=== PATIENT | male | born 1960 | race Caucasian/White ===

== ENCOUNTER → 2020-01-04 09:04 | Outpatient (BNVA) | payer MEDICARE, SELFPAY | PROVIDERS: Family Provider Nurse Practitioner; PCP Nurse Practitioner; Visit Provider Nurse Practitioner | DX: I10 Essential (primary) hypertension (principal); I73.9 Peripheral vascular disease, unspecified; E78.2 Mixed hyperlipidemia | CPT/HCPCS: 80053; 80061; 81000; 85025 ==

== ENCOUNTER → 2020-07-10 08:42 | Outpatient (BNVA) | payer MEDICARE, SELFPAY | PROVIDERS: Family Provider Nurse Practitioner; PCP Nurse Practitioner; Visit Provider Nurse Practitioner | DX: I10 Essential (primary) hypertension (principal); R73.9 Hyperglycemia, unspecified; I73.9 Peripheral vascular disease, unspecified; E78.2 Mixed hyperlipidemia | CPT/HCPCS: 80053; 83036; 85025 ==

== ENCOUNTER → 2021-06-24 09:53 | Outpatient (BNVA) | payer MEDICARE, SELFPAY | PROVIDERS: Family Provider Nurse Practitioner; PCP Nurse Practitioner; Visit Provider Nurse Practitioner | DX: I73.9 Peripheral vascular disease, unspecified (principal); I10 Essential (primary) hypertension; E78.2 Mixed hyperlipidemia; E55.9 Vitamin D deficiency, unspecified | CPT/HCPCS: 80053; 80061; 82306; 84443 ==

== ENCOUNTER → 2021-11-28 11:16 | Outpatient (BNVA) | payer MEDICARE, SELFPAY | PROVIDERS: Family Provider Nurse Practitioner; PCP Nurse Practitioner; Visit Provider Nurse Practitioner | DX: I10 Essential (primary) hypertension (principal); I73.9 Peripheral vascular disease, unspecified; E78.2 Mixed hyperlipidemia | CPT/HCPCS: 80053; 80061; 85025 ==

== ENCOUNTER → 2022-06-03 10:37 | Outpatient (BNVA) | payer MEDICARE, SELFPAY | PROVIDERS: Family Provider Nurse Practitioner; PCP Nurse Practitioner; Visit Provider Nurse Practitioner | DX: I73.9 Peripheral vascular disease, unspecified (principal); I10 Essential (primary) hypertension; E78.2 Mixed hyperlipidemia; Z23 Encounter for immunization | CPT/HCPCS: 80053; 80061; 84443 ==

== ENCOUNTER → 2022-12-19 09:45 | Outpatient (BNVA) | payer MEDICARE, SELFPAY | PROVIDERS: Family Provider Nurse Practitioner; PCP Nurse Practitioner; Visit Provider Nurse Practitioner | DX: E78.2 Mixed hyperlipidemia (principal); I73.9 Peripheral vascular disease, unspecified; I10 Essential (primary) hypertension | CPT/HCPCS: 80053; 80061; 85025 ==

== ENCOUNTER → 2023-06-11 09:55 | Outpatient (BNVA) | payer MEDICARE, SELFPAY | PROVIDERS: Family Provider Nurse Practitioner; PCP Nurse Practitioner; Visit Provider Nurse Practitioner | DX: E78.2 Mixed hyperlipidemia (principal); I10 Essential (primary) hypertension | CPT/HCPCS: 80053; 80061; 85025 ==

== ENCOUNTER → 2023-11-26 09:37 | Outpatient (BNVA) | payer MEDICARE, SELFPAY | PROVIDERS: Family Provider Nurse Practitioner; PCP Nurse Practitioner; Visit Provider Nurse Practitioner | DX: I10 Essential (primary) hypertension (principal); E78.2 Mixed hyperlipidemia | CPT/HCPCS: 80053; 80061 ==

== ENCOUNTER → 2024-04-28 09:49 | Outpatient (BNVA) | payer MEDICARE, SELFPAY | PROVIDERS: Family Provider Nurse Practitioner; PCP Nurse Practitioner; Visit Provider Nurse Practitioner | DX: I10 Essential (primary) hypertension (principal); E78.2 Mixed hyperlipidemia; E55.9 Vitamin D deficiency, unspecified | CPT/HCPCS: 80053; 80061; 82306; 82607; 84443; 85025 ==

== ENCOUNTER → 2024-10-13 10:54 | Outpatient (BNVA) | payer MEDICARE, SELFPAY | PROVIDERS: Family Provider Nurse Practitioner; PCP Nurse Practitioner; Visit Provider Nurse Practitioner | DX: I10 Essential (primary) hypertension (principal); E78.2 Mixed hyperlipidemia | CPT/HCPCS: 80053; 80061 ==

== ENCOUNTER 2025-01-10 09:59 | Emergency (ER) | payer MEDICARE, SELFPAY ==
[2025-01-10 10:31] VITALS: BP 153/82; PULSE 82; RESP 17; TEMP 36.7; O2SAT 92; BMI 22.4
--- NOTE | 2025-01-10 10:40 | W.ED.WOUNDLC ---
HPI - Wound/Laceration General: Chief Complaint: Wound/Laceration Stated Complaint: L thumb lac Time Seen by Provider: 01/10/25 10:31 Source: patient Mode of arrival: ambulatory Limitations: no limitations History of Present Illness: 64-year-old male who states he was working with a table saw and lacerated his left thumb just prior to arrival. He is shaved off a portion of the skin on the pad of his left thumb bleeding is controlled denies any other injuries unsure when his last tetanus was. Associated symptoms: Denies chills, fever(s), nausea or vomiting Related Data Home Medications ?Medication ?Instructions ?Recorded ?Confirmed aspirin 325 mg tablet,delayed 325 mg PO DAILY 01/04/20 10/13/24 release Previous Rx's ?Medication ?Instructions ?Recorded apixaban 2.5 mg tablet (Eliquis) 2.5 mg PO BID #60 tabs 10/13/24 evolocumab 140 mg/mL subcutaneous 140 mg SUBCUT .every 14 days #2 mL 10/13/24 pen injector ([employer]) lisinopril 30 mg tablet 30 mg PO DAILY #30 tabs 10/13/24 magnesium oxide 400 mg PO BID #60 caps 10/13/24 rosuvastatin 10 mg tablet 10 mg PO DAILY #30 tabs 10/13/24 Allergies Allergy/AdvReac Type Severity Reaction Status Date / Time No Known Allergies Allergy Verified 10/13/24 10:15 Review of Systems Const: Denies: fever(s), chills, body aches or change in appetite ENMT: Denies: throat pain or dental pain Card: Denies: chest pain Resp: Denies: dyspnea GI: Denies: abdominal pain, nausea, vomiting or diarrhea Musc: Denies: neck pain or back pain Skin/Breast: Denies: rash Neuro: Denies: headache(s) PFSH ED PFSH: Medical History Need for immunization against influenza Personal history of smoking Essential (primary) hypertension Mixed hyperlipidemia PAD (peripheral artery disease) Surgical History History of fusion of thoracic spine August, at [facility], [place] T-11 Hx of resection of rib Left lower 2 ribs removed August, at [place], [place] History of arterial bypass of lower extremity Right 2015 Left 2019 Family History Other Diabetes FH: CVA (cerebrovascular accident) Social History Smoking and tobacco/nicotine status: current every day tobacco/nicotine user Second hand smoke exposure: Yes Alcohol intake: current Substance/Drug Use: never Adopted: No Caregiver/support person: No Lives independently: Yes Household members: spouse Housing: House Marital status: Number of children: 3 service: No Current occupational status: retired Do you think of yourself as: Straight/Heterosexual Current gender identity: Male Physical Exam Const: COMMON NORMALS: no acute distress, patient oriented x3 and healthy appearing HENMT: COMMON NORMALS: normocephalic HEAD & SCALP: normocephalic Eye: COMMON NORMALS: conjunctivae normal CONJUNCTIVA: Yes conjunctivae normal Neck/C-Spine: COMMON NORMALS: full ROM and supple Chest: COMMONS NORMALS: normal inspection of the chest Resp: COMMON NORMALS: normal respiratory effort Cardio: COMMON NORMALS: regular rate RATE: regular rate Extremity: COMMON NORMALS: full ROM OTHER: Superficial laceration to the palmar surface of left thumb is roughly 3 cm long by 2 cm wide just shaved a portion of the skin Neuro: COMMON NORMALS: patient oriented x3, moves all extremities and no focal motor deficits Psych: COMMON NORMALS: mental status grossly normal, Normal thought process present and cooperative THOUGHT PROCESS: Normal thought process present Skin: COMMON NORMALS: no rashes or lesions noted GENERAL SKIN EXAM: no rashes or lesions noted Course Vital Signs: Vital signs: Vital Signs Temperature 98.0 F 01/10/25 10:31 Pulse Rate 82 01/10/25 10:31 Respiratory Rate 17 01/10/25 10:31 Blood Pressure 153/82 01/10/25 10:31 Pulse Oximetry 92 01/10/25 10:31 Oxygen Delivery Me thod Room Air 01/10/25 10:31 MDM - Wound/Laceration Medical Decision Making Patient presents here with laceration to the left thumb that is not able to be sutured as it is just the skin shaved off will allow to heal by secondary intention he is to do pressure dressings will give him a tetanus he is follow-up PCP return if worsening. No radiology studies performed this visit Discharge Plan Discharge Patient Disposition: Home Clinical Impression: Laceration of left thumb Condition: Stable Prescriptions: No Action aspirin 325 mg tablet,delayed release (DR/EC) 325 mg PO DAILY Repatha SureClick 140 mg/mL pen injector 140 mg SUBCUT .every 14 days Qty: 2 5RF Eliquis 2.5 mg tablet 2.5 mg PO BID Qty: 60 5RF lisinopril 30 mg tablet 30 mg PO DAILY Qty: 30 5RF magnesium oxide 400 mg magnesium capsule 400 mg PO BID Qty: 60 5RF rosuvastatin 10 mg tablet 10 mg PO DAILY Qty: 30 5RF Discharge Orders: Discharge ED (Routine); Ordered 01/10/25 Ordered By: Jurgen Miner Referrals: Domingo Oneill, TICKER MAINTAINER-C [Primary Care Provider, [facility]] - 4-7 days Discharge Diet: Advance as tolerated Discharge Activity: Resume usual activity Patient Instructions: Laceration Without Closure (ED) Print Language: Swedish Coding Level of Care Code ED Commissions Specialist for Yuval Jensen
[2025-01-10] MEDS: tetanus-dipt-pertussis 0.5 mL SDV IM (11:05)
[2025-01-10] MEDS: HYDROcodone-acetaminophen 5-325 mg Tablet 1 TAB PO (11:06)
== END 2025-01-10 11:09 | disposition home or self-care (01) ==
PROVIDERS: Emergency Provider Emergency Medicine; PCP Nurse Practitioner
DX: S61.012A Laceration without foreign body of left thumb without damage to nail, initial encounter (principal); F17.200 Nicotine dependence, unspecified, uncomplicated; I73.9 Peripheral vascular disease, unspecified; E78.2 Mixed hyperlipidemia; I10 Essential (primary) hypertension; W31.2XXA Contact with powered woodworking and forming machines, initial encounter; Z23 Encounter for immunization
CPT/HCPCS: 90471; 90715; 99283; J9999

== ENCOUNTER → 2025-04-06 08:45 | Outpatient (BNVA) | payer MEDICARE, SELFPAY | PROVIDERS: PCP Nurse Practitioner; Visit Provider Nurse Practitioner | DX: Z12.5 Encounter for screening for malignant neoplasm of prostate (principal); I10 Essential (primary) hypertension; E78.2 Mixed hyperlipidemia | CPT/HCPCS: 80053; 80061; 82607; G0103 ==

== ENCOUNTER 2025-04-13 18:24 | Emergency (ER) | payer MEDICARE, SELFPAY ==
--- OUTSIDE RECORDS SUMMARY | 2025-04-13 18:29 | XMS_ITS | Encounter Summary ---
Author Organization [facility] Address [address] [place] [address] Care Team Providers Care Highway Maintainer Name Role Phone Non-Staff, Physician Primary Care Provider Unava ilable Encounter Details Date Type Department Care Team (Late st Contact Info) Description 10/14/2019 Ancillary Orders [facility] Interventional Radiology OR [address] [place] [address] [place] [address] Israel Hightower MD [address] [place] [phone] PVD (peripheral vascular disease) Social History Tobacco Use Types Packs/Day Years Used Date Smoking Tobacco: Former Cigarettes 1 45 Smokeless Tobacco: Never Comments:Currently smokes 0. 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
--- OUTSIDE RECORDS SUMMARY | 2025-04-13 18:29 | XMS_ITS | Encounter Summary ---
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 No / Unsure 01/16/2021 10:48 AM CDT documented as of this encounter Plan of Treatment Not on file documented as of this encounter Results * US AORTA (01/29/2021 10:34 AM CDT) Anatomical Region Laterality Modality Abdomen Ultrasound 01/29/2021 10:3 4 AM CDT Impressions 01/29/2021 5:32 PM CDT IMPRESSION: Please see below. Exam: US AORTA Date/Time of Exam: 01/29/2021 10:34 AM Reason For Exam: See Diagnosis. 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 Findings: This study is correlated with a noncontrast CT scan of the abdomen and pelvis dated 12/22/2020. As of the previous noncontrast CT scan, a stent or stent graft was present within the left external iliac artery but not the left common femoral artery. Today's examination notes describes a left common iliac artery stents in place but this most likely instead represents the external iliac artery. Color-flow imaging demonstrates patency of the aorta and iliac arteries. Flow velocities throughout all the vessels are in normal range however there is a velocity acceleration between the right common femoral artery and the proximal right superficial femoral artery raising the possibility of a proximal SFA or distal common femoral artery stenosis. There is also acceleration of flow velocity within the proximal right profunda femoris artery. No such exenteration is seen on the left. The aorta and other vessels are of normal diameter. There is no aneurysm. IMPRESSION: Arteriovascular patency is demonstrated. In particular, there is patency of the stented left external iliac artery. Flow velocities raise the possibility of a stenosis of the distal right SFA and/or proximal SFA and profunda femoris arteries. Narrative Procedure Note Michelle Babin MD - 01/29/2021 IMPRESSION: Please see below. Exam: US AORTA Date/Time of Exam: 01/29/2021 10:34 AM Reason For Exam: See Diagnosis. 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 Findings: This study is correlated with a noncontrast CT scan of the abdomen and pelvis dated 12/22/2020. As of the previous noncontrast CT scan, a stent or stent graft was present within the left external iliac artery but not the left common femoral artery. Today's examination notes describes a left common iliac artery stents in place but this most likely instead represents the external iliac artery. Color-flow imaging demonstrates patency of the aorta and iliac arteries. Flow velocities throughout all the vessels are in normal range however there is a velocity acceleration between the right common femoral artery and the proximal right superficial femoral artery raising the possibility of a proximal SFA or distal common femoral artery stenosis. There is also acceleration of flow velocity within the proximal right profunda femoris artery. No such exenteration is seen on the left. The aorta and other vessels are of normal diameter. There is no aneurysm. IMPRESSION: Arteriovascular patency is demonstrated. In particular, there is patency of the stented left external iliac artery. Flow velocities raise the possibility of a stenosis of the distal right SFA and/or proximal SFA and profunda femoris arteries. 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
--- OUTSIDE RECORDS SUMMARY | 2025-04-13 18:29 | XMS_ITS | Encounter Summary ---
Author Organization [facility] Address [address] [place] [address] Care Team Providers Care Director Of Quality Improvement Name Role Phone Non-Staff, Physician Primary Care Provider Unava ilable Reason for Referral * Outpatient Services (Routine) - Closed Specialty Diagnoses / Procedures Referred By Duac t Referred To Contact Radiology Diagnoses Leg pain, right Procedures US DUPLEX ARTERIAL LEG RIGHT Bandar Castellanos DO NO ADDRESS ON FILE [facility] [address] [place] [address] Phone: tel: fax: Referral ID Status Reason Start Date Expiration Date V isits Requested Visits Authorized [id number] Closed ORN View CTS to Schedule (SGF) 07/25/2014 08/25/2015 1 1 ORATOR Encounter Details Date Type Department Care Team (Latest Contact Info) Description 07/25/2014 Ancillary Orders [facility] Centralized Scheduling [address] [facility] [address] [place] [id number] Bandar Castellanos DO NO ADDRESS ON FILE Leg pain, right (Primary Dx) Social History Tobacco Use Types Packs/Day Years Used Date Smoking Tobacco: Never Assessed Sex and Gender Information Value Date Recorded Sex Assigned at Not on file 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 The bifurcation of the common femoral artery shows extensive atherosclerotic changes, without stenosis. At the popliteal artery, there is a 1.8 cm mass , possibly representing a thrombosed aneurysm, although no flow is seen into or out of of the lesion. Distal to this level, flow is markedly restricted and may be collateral flow. IMPRESSION mass or thrombosed aneurysm in the popliteal fossa Procedure Note Addy Vega MD - 07/25/2014 PROCEDURE Right LOWER EXTREMITY ARTERIAL DOPPLER, 25 July 2014 DESCRIPTION Flow velocities measured in the arterial system of the lower extremity proximally show no focal acceleration to suggest hemodynamically significant stenosis. The bifurcation of the common femoral artery shows extensive atherosclerotic changes, without stenosis. At the popliteal artery, there is a 1.8 cm mass , possibly representing a thrombosed aneurysm, although no flow is seen into or out of of the lesion. Distal to this level, flow is markedly restricted and may be collateral flow. IMPRESSION mass or thrombosed aneurysm in the popliteal fossa us Bandar Castellanos DO US ORDERABLES Final Result documented in this encounter Visit Diagnoses Diagnosis Leg pain, right- Primary Pain in limb Leg pain, right Pain in limb documented in this encounter Care Teams Director Of Quality Improvement Relationship Specialty Start Date End Date Non-Staff, Physician NO ADDRESS ON FILE PCP - General 11/19/16 documented as of this encounter
--- OUTSIDE RECORDS SUMMARY | 2025-04-13 18:29 | XMS_ITS | Encounter Summary ---
Author Organization [facility] Address [address] [place] [address] Care Team Providers Care Computer Systems Technician Name Role Phone Non-Staff, Physician Primary Care Provider Unava ilable Encounter Details Date Type Department Care Team (Late st Contact Info) Description 10/05/2019 Ancillary Orders [facility] Interventional Radiology OR [address] [place] [address] 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
--- OUTSIDE RECORDS SUMMARY | 2025-04-13 18:29 | XMS_ITS | Encounter Summary ---
Author Organization [facility] Address [address] [place] [address] Care Team Providers Care Support Analyst Name Role Phone Non-Staff, Physician Primary Care Provider Unava ilable Encounter Details Date Type Department Care Team (Late st Contact Info) Description 07/24/2014 Ancillary Orders [facility] Laboratory Services [place] [address] [place] [address] Social History Tobacco Use Types Packs/Day Years Used Date Smoking Tobacco: Never Assessed Sex and Gender Information Value Date Recorded Sex Assigned at Not on file Legal 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 Gender Identity Not on file Sexual Orientation Not on file documented as of this encounter Plan of Treatment Not on file documented as of this encounter Procedures Procedure Name Priority Date/Time Associated Diagnosis Comments CBC WITH DIFFERENTIAL Routine 07/24/2014 11:04 PM BURNER MACHINE OPERATOR SEDIMENTATION RATE Routine 07/24/2014 11 :04 PM BURNER MACHINE OPERATOR TSH Routine 07/24/2014 11:04 PM BURNER MACHINE OPERATOR COMPREHENSIVE METABOLIC PANEL Routine 07/24/2014 11:04 PM BURNER MACHINE OPERATOR documented in this encounter Results * TSH (07/24/2014 11:04 PM BURNER MACHINE OPERATOR) TSH 3.65 0.30 - 4.80 uIU/mL 07/24/2014 11:42 PM BURNER MACHINE OPERATOR [facility] [place] Blood 07/24/2014 11:0 4 PM BURNER MACHINE OPERATOR 07/24/2014 11:04 PM BURNER MACHINE OPERATOR us Bandar Castellanos DO CHEMISTRY ORDERABLES Final Resu lt Performing Organization Address [facility] Co de Phone Number [facility] [place] CLIA # [id number] [address] [place] [address] * SEDIMENTATION RATE (07/24/2014 11:04 PM BURNER MACHINE OPERATOR) ESR (SEDIMENTATION RATE) 10 0 - 20 mm/Hr 07/24/2014 11:29 PM BURNER MACHINE OPERATOR [facility] [place] Blood 07/24/2014 11:0 4 PM BURNER MACHINE OPERATOR 07/24/2014 11:04 PM BURNER MACHINE OPERATOR us Bandar Castellanos DO HEMATOLOGY ORDERABLES Final Res ult Performing Organization Address [facility] Co de Phone Number [facility] [place] CLIA # [id number] [address] [place] [address] * (ABNORMAL) COMPREHENSIVE METABOLIC PANEL (07/24/2014 11:04 PM BURNER MACHINE OPERATOR) SODIUM 140 136 - 145 mmol/L 07/24/2014 11:42 PM BURNER MACHINE OPERATOR [facility] [place] POTASSIUM 3.8 3.5 - 5.1 mmol/L 07/24/2014 11:42 PM BURNER MACHINE OPERATOR [facility] [place] CHLORIDE 105 98 - 107 mmol/L 07/24/2014 11:42 PM BURNER MACHINE OPERATOR [facility] [place] CO2 28 21 - 32 mmol/L 07/24/2014 11:42 PM BURNER MACHINE OPERATOR [facility] [place] CALCIUM 8.7 8.5 - 10.1 mg/dL 07/24/2014 11:42 PM BURNER MACHINE OPERATOR [facility] [place] BUN 18 7 - 18 mg/dL 07/24/2014 11:42 PM BURNER MACHINE OPERATOR [facility] [place] CREATININE 1.20 0.60 - 1.30 mg/dL 07/24/2014 11:42 PM BURNER MACHINE OPERATOR [facility] [place] GLUCOSE 98 74 - 106 mg/dL 07/24/2014 11:42 PM BURNER MACHINE OPERATOR [facility] [place] TOTAL PROTEIN 7.4 6.4 - 8.2 g/dL 07/24/2014 11:42 PM [facility] [employer] [facility] [place] ALBUMIN 3.7 3.4 - 5.0 g/dL 07/24/2014 11:42 PM [facility] BILIRUBIN TOTAL 0.6 0.2 - 1.0 mg/dL 07/24/2014 11:42 PM [facility] ALKALINE PHOSPHATASE 71 46 - 116 U/L 07/24/2014 11:42 PM [facility] AST 9(L) 15 - 37 U/L 07/24/2014 11:42 PM [facility] ALT 20(L) 30 - 65 U/L 07/24/2014 11:42 PM [facility] GFR >60 >=60 mL/min/1.7 3 sq meter 07/24/2014 11:42 PM [facility] [employer] [facility] Comment: eGFR has not been validated for use in the elderly (> 70 years of age), women, patients with serious co-morbid conditions, or persons with extremes of body size or muscle mass and should also be interpreted with caution in patients with acute kidney failure, dialysis dependent patients, patients reporting exceptional dietary intake (e.g. vegetarian diet, high protein diets, creatine supplementation), and patients with severe liver disease. Based on National Kidney Disease Education Program If patient is , please refer to the GFR result. GFR, >60 >=60 mL/min/1.7 3 sq meter 07/24/2014 11:42 PM [facility] [employer] [facility] ANION GAP 7(L) 12 - 20 mmol/L 07/24/2014 11:42 PM [facility] Blood 07/24/2014 11:0 4 PM BURNER MACHINE OPERATOR 07/24/2014 11:04 PM BURNER MACHINE OPERATOR [facility] [facility] [place] - 07/24/2014 11:42 PM BURNER MACHINE OPERATOR Effective 04/20/2014, the Alkaline Phosphatase test method and reference range have changed. Please take this into consideration when interpreting results prior to or after this date. us Bandar Castellanos DO CHEMISTRY ORDERABLES Final Resu lt [facility] [place] BILLY # [id number] [address] [place] [address], [place] [address] * (ABNORMAL) CBC WITH DIFFERENTIAL (07/24/2014 11:04 PM BURNER MACHINE OPERATOR) WBC 10.8(H) 4.2 - 9.1 K/uL 07/24/2014 11:18 PM BURNER MACHINE OPERATOR [facility] [place] RBC 4.81 4.63 - 6.08 M/uL 07/24/2014 11:18 PM [facility] [place] HEMOGLOBIN 15.7 13.7 - 17.5 g/dL 07/24/2014 11:18 PM BURNER MACHINE OPERATOR [facility] [place] HEMATOCRIT 45.7 40.1 - 51.0 % 07/24/2014 11:18 PM [facility] [place] MCV 95.0(H) 79.0 - 92.2 fL 07/24/2014 11:18 PM [facility] [place] MCH 32.6(H) 25.7 - 32.2 pg 07/24/2014 11:18 PM BURNER MACHINE OPERATOR [facility] [place] MCHC 34.4 32.3 - 36.5 g/dL 07/24/2014 11:18 PM [facility] [place] RDW 14.1 11.0 - 14.5 % 07/24/2014 11:18 PM [facility] [place] RDW-STDEV 47.2 36.9 - 56.9 fL 07/24/2014 11:18 PM [facility] [place] PLATELETS 257 130 - 400 K/uL 07/24/2014 11:18 PM [facility] [place] MPV 10.4 10.0 - 14.8 fL 07/24/2014 11:18 PM BURNER MACHINE OPERATOR [facility] [place] NEUTROPHILS 57 34 - 68 % 07/24/2014 11:18 PM BURNER MACHINE OPERATOR [facility] [place] LYMPHOCYTES 29 22 - 53 % 07/24/2014 11:18 PM BURNER MACHINE OPERATOR [facility] [place] MONOCYTES 11 5 - 12 % 07/24/2014 11:18 PM BURNER MACHINE OPERATOR [facility] [place] EOSINOPHILS 3 1 - 7 % 07/24/2014 11:18 PM BURNER MACHINE OPERATOR [facility] [place] BASOPHILS 1 0 - 1 % 07/24/2014 11:18 PM BURNER MACHINE OPERATOR [facility] [place] NEUTROPHIL ABSOLUTE 6.12(H) 1.78 - 5.38 K/uL 07/24/2014 11:18 PM BURNER MACHINE OPERATOR [facility] [place] LYMPHOCYTE ABSOLUTE 3.09 1.20 - 3.40 K/uL 07/24/2014 11:18 PM BURNER MACHINE OPERATOR [facility] [place] MONOCYTE ABSOLUTE 1.23(H) 0.30 - 0.82 K/uL 07/24/2014 11:18 PM BURNER MACHINE OPERATOR [facility] [place] EOSINOPHIL ABSOLUTE 0.28 0.04 - 0.54 K/uL 07/24/2014 11:18 PM BURNER MACHINE OPERATOR [facility] [place] BASOPHILS ABSOLUTE 0.07 0.01 - 0.08 K/uL 07/24/2014 11:18 PM BURNER MACHINE OPERATOR [facility] [place] IMMATURE GRANULOCYTES 0 % 07/24/2014 11:18 PM BURNER MACHINE OPERATOR [facility] [place] IMMATURE GRANULOCYTES ABSOLUTE 0.02 K/uL 07/24/2014 11:18 PM BURNER MACHINE OPERATOR [facility] [place] Blood 07/24/2014 11:0 4 PM BURNER MACHINE OPERATOR 07/24/2014 11:04 PM BURNER MACHINE OPERATOR us Bandar Castellanos DO HEMATOLOGY ORDERABLES Final Res ult [facility] [place] CLIA # [id number] [address] [place] [address] [address] [place] [address] documented in this encounter Visit Diagnoses Not on filedocumented in this encounter Care Teams Support Analyst Relationship Specialty Start Date End Date Non-Staff, Physician NO ADDRESS ON FILE PCP - General 11/19/16 documented as of this encounter
--- OUTSIDE RECORDS SUMMARY | 2025-04-13 18:29 | XMS_ITS | Clinical Summary ---
Author Organization [facility] Address [address] [place] [address] Phone Care Team Providers Care Control Officer Manager Name Role Phone Non-Staff, Physician Primary Care Provider Unava ilable Allergies No known active allergies Medications aspirin buffered (BUFFERIN) 325 mg tablet Take 1 Tablet by mouth daily. 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 9 Active apixaban (Eliquis) 2.5 mg tablet TAKE ONE TABLET BY MOUTH TWICE DAILY 5 9 Active ibuprofen (MOTRIN) 400 mg tablet Take 400 mg by mouth every 6 hours as needed for Pain, Mild. 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 Acute blood loss anemia Ileus Acute upper GI bleeding Resolved Problems Problem Noted Date Diagnosed Date Resolved Date Suicide attempt 03/19/2018 06/14/2019 Burn of forehead 03/19/2018 06/14/2019 Tobacco abuse 08/16/2014 09/27/2019 Cellulitis 08/16/2014 06/14/2019 Postoperative hemorrhagic shock 12/25/2020 Acute renal failure 12/26/19 21 Immunizations Immunization Administration Dates Next Due (ADACEL/BOOSTRIX)(10 YR UP) TDAP VACCINE, 0.5ML, IM 03/19/2018 (PNEUMOVAX 23)(50 YRS UP) PN EUMOCOCCAL POLYSACCHARIDE (PPV23) 0.5 ML, IM 04/04/2019 Social History Tobacco Use Types Packs/Day Years Used Date Smoking Tobacco: Every Day Cigarettes Smokeless Tobacco: Never Comments:Quit smoking: Lori horowitz smokes 0.5 ppd 10.13.20 - 11.12.19 QUIT 08/17/2019 Alcohol Use Standard Drinks/Week Comments No 0 (1 standard drink = 0.6 oz pur e alcohol) Sex and Gender Information Value Date Recorded Sex Assigned at Not on file 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 Gender Identity Not on file Sexual Orientation Not on file Last Filed Vital Signs Vital Sign Reading Time Taken Comments Blood Pressure 116/72 01/29/2021 10:36 AM CDT Pulse 81 01/29/2021 10:36 AM CDT Temperature 37.1 C (98.7 F) 12/25/2020 7:30 AM CDT Respiratory Rate 20 12/25/2020 9:30 AM CDT Oxygen Saturation - - Inhaled Oxygen Concentration - - Weight 66.2 kg (146 lb) 01/29/2021 10:36 AM CDT Height 167.6 cm (5' 6 ) 01/29/2021 10:36 AM CDT Body Mass Index 23.56 01/29/2021 10:36 AM CDT Plan of Treatment Health Maintenance Due Date Last Done Comments COLORECTAL SCREENING 12/29/2004 Colorectal Cancer Screening 12/29/2004 FIT-DNA Q 3 years 12/29/2004 FIT/FOBT Q 1 year 12/29/2004 Flex Sig/CT Colonography Q 5 years 12/29/2004 ZOSTER VACCINE (1 of 2) 12/29/2009 PNEUMOCOCCAL VACCINE 50+ YEARS (2 of 2 - PCV) 04/04/20 20 04/04/2019 INFLUENZA VACCINE (#1) 2025 DTAP/TDAP/TD VACCINES (2 - Td or Tdap) 03/19/2028 RSV VACCINE (60+ or ) (1 - 1-dose 75+ series) 12/29/2034 Medical Devices Implanted Type Area Sales Support Representative Device Identifier Shelf Expiration Date Model / Serial / Lot Clip Ligating Horizon Med Ti 759141 - Csc - [id number] Implanted: by Israel Hightower MD (Quantity not on file) Clip Left: Leg TELEFLEX- WECK CLOSURE SYS [id number] 02/23/2024 [id number] / / [id number] Closure Perclose Proglide 00810 - [id number] Implanted:Qty : 1 on 12/22/2020 by Israel Hightower MD Closure Device SADLER- VASC DEVICE [id number] 11/02/2020 23332 / / [id number] Dev Sealangio Vip 8fr 298706t - [id number] Implanted:Qty : 1 on 12/22/2020 by Israel Hightower MD Closure Device Right: Groin SADLER [employer] 03/16/2021 [id number] / / [id number] Dev Sealangio Vip 8fr 302322b - [id number] Implanted:Qty : 1 on 12/22/2020 by Israel Hightower MD Closure Device Right: Groin SADLER [employer] 08/16/2021 [id number] / / [id number] Cuauhtemoc Dey [id number] 376913k - [id number] Implanted:Qty : 1 on 08/02/2014 by Ally Molina MD Graft Right: Arterial [employer] TAMIKA 01/31/2017 [id number] / / [id number] Vein Saphenous 79cm V010 - Ssn: [id number]..... .Dnr: [id number] Implanted:Qty : 1 on 10/06/2014 by Ally Molina MD Graft Right: Leg [employer] INC 01/31/2024 V010 / SN: [id number]...... DNR: [id number] / NA Description:Implant of Cryov ein saphenous vein human allograft to right leg used for right femoral artery to right posterior tibial artery bypass. Starclose Se Vasc Closure 55812-33 - [id number] Implanted:Qty : 1 on 08/17/2014 by Ally Molina MD Hemostatic Right: Groin SADLER- VASC DEVICE 12/16/2015 10333 / / [id number] Hemostatic Surgifoam Sz100 1974 - Sna Implanted:Qty : 1 on 12/15/2018 by Israel Hightower MD Hemostatic Left: Groin J&J- [employer] 11/03/20221973 / NA / [id number] Hemostatic Surgicel 1x2in 1960 [id number] Implanted: by Israel Hightower MD (Quantity not on file) Hemostatic Left: Leg J&J- [employer] INC [id number] 11/14/20211960 / / [id number] Sealant Floseal Matrix 5ml 0692960 - Old - [id number] Implanted: by Israel Hightower MD (Quantity not on file) Sealant Left: Leg [employer]- [employer] [id number] 08/12/2020 0512344 -OLD / / [id number] Sealant Floseal Matrix 5ml 2426428 - Old - [id number] Implanted: by Israel Hightower MD (Quantity not on file) Sealant Left: Leg OCAMPO- BIOS[employer]ENCE [id number] 08/12/2020 4206379 -OLD / / [id number] 7A Stent Bili Absolute Pro 5x40 1089200-09 - [id number] Implanted:Qty : 1 on 08/17/2014 by Ally Molina MD Stent Right: Groin SADLER- VASC DEVICE 06/17/2016 [id number] -04 / / [id number] Stent Viabahn 5x15.0/.018-. 014 [id number] - [id number] Implanted:Qty : 1 on 08/17/2014 by Ally Molina MD Stent Right: Groin [employer] 03/17/2016 [id number] 02 / / [id number] Stent Viabahn 5x5.0/.018-.0 14 [id number] - [id number] Implanted:Qty : 1 on 08/17/2014 by Ally Molina MD Stent Right: Groin [employer] 04/17/2016 [id number] 02 / / [id number] Stent Xprs Sd [id number] - S. Implanted:Qty : 1 on 08/17/2014 Stent Right: Groin [employer]LY [employer] 06/17/2016 89247-4 1989 / . / [id number] Description:laboratory specialist charge Stent Viabahn Hep 8xxr37ce [id number] - [id number] Implanted:Qty : 1 on 12/15/2018 by Israel Hightower MD Stent Left: Popliteal Artery [employer] 03/11/2021 [id number] 002A / [id number] / NA Stent Vasc Supera 6fr Q-67-850-120- P6-01/04/2019 Implanted: by Israel Hightower MD (Quantity not on file) Stent SADLER- VASC DEVICE [id number] 08/16/2020 S-60-10 0-120-P / / [id number] Stent-01/05/20 Implanted:Qty : 1 on 01/04/2019 by Israel Hightower MD Stent [id number] 08/16/2020 / / [id number] Stent Lifestent 7 X 100-01/21/2019 Implanted:02/2019 (Quantity not on file) Stent [id number] 06/11/2020 / / [id number] Stent R2p 6fr 7.0x40mm 200cm Misago Slf Expand Cvu88350s-40/ 7/2019 Implanted:02/2019 by Israel Hightower MD (Quantity not on file) Stent Leg [employer] TAMIKA [id number] 06/16/2021 [id number] [id number] / / [id number] Description:L SFA Stent Lifestream [id number] - [id number] Implanted:Qty : 1 on 12/21/2020 Stent Left: Leg CR BARD- KIMBERLY VASC INC 04/16/2022 [id number] 0737 / / [id number] Stent Lifestream Cvr 0s51s65 [id number] - [id number] Implanted:Qty : 1 on 12/21/2020 Stent N/A: Arterial CR BARD- KIMBER[employer] VASC INC 08/16/2023 [id number] 0758 / / [id number] Stent Lifestream Cvr 5x25z68 [id number] - [id number] Implanted:Qty : 1 on 12/22/2020 by Israel Hightower MD Stent Left: Leg CR BARD- KIMBER[employer] VASC INC 08/16/2023 [id number] 0737 / / [id number] Stent Vasc Enroute 7x30mm Sr-0730-Cs - [id number] Implanted:Qty : 1 on 12/22/2020 by Israel Hightower MD Stent Left: Iliac Artery SILKROAD 07/16/2023 SR-0730 -CS / / [id number] Stent Viabahn Vbx [id number] - [id number] Implanted:Qty : 1 on 12/22/2020 by Israel Hightower MD Stent Left: Iliac Artery [employer] [id number] 902A / / Graft Vasc Propaten 9tmo76bs Qp457668p - [id number] Implanted:Qty : 1 on 10/14/2019 by Israel Hightower MD Tissue Left: Leg [employer] [id number] 07/26/2023 [id number] 0A / [id number] / Insurance * Guarantor: TERE HERRON Account Type Relation to Patient Date of Phone Billing Address Personal/Family [id number] [place] [address] RX [facility] Medicare Part D RX [employer] Medicaid Care Teams Control Officer Manager Relationship Specialty Start Date End Date Non-Staff, Physician NO ADDRESS ON FILE PCP - General 11/19/16
--- OUTSIDE RECORDS SUMMARY | 2025-04-13 18:29 | XMS_ITS | Encounter Summary ---
Author Organization [facility] Address [address] [place] [address] Care Team Providers Care Experimental Mechanic Spacecraft Name Role Phone Non-Staff, Physician Primary Care Provider Unava ilable Reason for Referral * Radiology Services (Routine) - Closed Specialty Diagnoses / Procedures Referred By Contac t Referred To Contact Diagnoses PVD (peripheral vascular disease) Procedures XR FLUORO LESS THAN 1 HOUR Israel Hightower MD Phone: tel: fax: Referral ID Status Reason Start Date Expiration Date Visits Re quested Visits Authorized [id number] Closed 12/15/2018 01/15/2020 1 1 Encounter Details Date Type Department Care Team (Late st Contact Info) Description 12/15/2018 Ancillary Orders 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 Exam was auto-finalized as part of the [email or web address] Single Instance conversion project. Procedure Note Mendoza Aviles - 01/28/2021 Order information only. Exam was auto-finalized as part of the [email or web address] Single Instance conversion project. Israel Hightower MD DIAGNOSTIC IMAGING FLEX [place] Final Result documented in this encounter Visit Diagnoses Diagnosis PVD (peripheral vascular disease) Peripheral vascular disease, unspecified documented in this encounter Care Teams Experimental Mechanic Spacecraft Relationship Specialty Start Date End Date Non-Staff, Physician NO ADDRESS ON FILE PCP - General 11/19/16 documented as of this encounter
--- OUTSIDE RECORDS SUMMARY | 2025-04-13 18:29 | XMS_ITS | Clinical Summary ---
Author Organization [facility] Address [address] [place] [address] Phone Care Team Providers Care Contact Lens Manufacturer Name Role Phone Non-Staff, Physician Primary Care Provider Unava ilable Allergies No known active allergies Medications ibuprofen (MOTRIN) 400 mg tablet Take 400 mg by mouth every 6 hours as needed for Pain, Mild. 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 Active acetaminophen (TYLENOL) 325 mg tablet Take 2 Tablets (650 mg) by mouth every 6 hours as needed for Other (See Comment) (See admin instruction s). 9 Active ELIQUIS 2.5 mg tablet TAKE ONE TABLET BY MOUTH TWICE DAILY 5 9 Active pantoprazole (PROTONIX) 40 mg Tablet, Delayed Release (E.C.) Take 1 Tablet (40 mg) by mouth daily before breakfast. 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 Gender Identity Not on file Sexual Orientation Not on file Occupation Industry Job Start Date Job End Date Not on file Not on file Not on file Not on file Last Filed Vital Signs Vital Sign Reading Time Taken Comments Blood Pressure 116/72 01/29/2021 10:36 AM CDT Pulse 81 01/29/2021 10:36 AM CDT Temperature 37.1 C (98.7 F) 12/25/2020 7:30 AM CDT Respiratory Rate 20 12/25/2020 9:30 AM CDT Oxygen Saturation 96% 01/29/2021 10:36 AM CDT Inhaled Oxygen Concentration - - Weight 66.2 kg (146 lb) 01/29/2021 10:36 AM CDT Height 167.6 cm (5' 6 ) 01/29/2021 10:36 AM CDT Body Mass Index 23.57 01/29/2021 10:36 AM CDT Plan of Treatment [...] series) 12/29/2034 Medical Devices Implanted Type 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 Device Identifier Shelf Expiration Date Model / Serial / Lot Clip Ligating Horizon Med Ti [id number] - Csc - [id number] Implanted: by Israel Hightower MD at [facility] (Quantity not on file) Clip Left: Leg TELEFLEX- WECK CLOSURE SYS [id number] 02/23/2024 [id number] / / [id number] Dev Sealangio Vip 8fr [id number] - [id number] Implanted:Qty : 1 on 12/22/2020 by Israel Hightower MD at [facility] Closure Device Right: Groin [facility] 08/16/2021 [id number] / / [id number] Closure Perclose Proglide 87993 - [id number] Implanted:Qty : 1 on 12/22/2020 by Israel Hightower MD at [facility] Closure Device SADLER- VASC DEVICE [id number] 11/02/2020 90866 / / [id number] Sealangio Vip 8fr [id number] - [id number] Implanted:Qty : 1 on 12/22/2020 by Israel Hightower MD at [facility] Closure Device Right: Groin [facility] 03/16/2021 113802 / / [id number] Grft Fusn Bioline [id number] - [id number] Implanted:Qty : 1 on 08/02/2014 by Ally Molina MD at [facility] Graft Right: Arterial [employer] TAMIKA 01/31/2017 337322S / / [id number] Vein Saphenous 79cm V010 - Ssn: [id number]..... .Dnr: [id number] Implanted:Qty : 1 on 10/06/2014 by Ally Molina MD at [facility] Graft Right: Leg [employer] 01/31/2024 V010 / SN: [id number]...... DNR: [id number] / NA Description:Implant of Cryov ein saphenous vein human allograft to right leg used for right femoral artery to right posterior tibial artery bypass. Starclose Se Vasc Closure 68570-94 - [id number] Implanted:Qty : 1 on 08/17/2014 by Ally Molina MD at [facility] Hemostatic Right: Groin SADLER- VASC DEVICE 12/16/2015 15090 / / [id number] Hemostatic Surgifoam Sz100 1974 - Sna Implanted:Qty : 1 on 12/15/2018 by Israel Hightower MD at [facility] Hemostatic Left: Groin J&J- [employer] INC 11/03/2022 1974 / NA / [id number] Hemostatic Surgicel 1x2in 1960 - [id number] Implanted: by Israel Hightower MD at [facility] (Quantity not on file) Hemostatic Left: Leg J&J- [employer] INC [id number] 11/14/20211960 / / [id number] Sealant Floseal Matrix 5ml 8053869 - Old - [id number] Implanted: by Israel Hightower MD at [facility] (Quantity not on file) Sealant Left: Leg TriQ Systems [id number] 08/12/2020 8248710 -OLD / / [id number] Sealant Floseal Matrix 5ml [id number] - - [id number] Implanted: by Israel Hightower MD at [facility] (Quantity not on file) Sealant Left: Leg [employer]Q Systems [id number] 08/12/2020 8323499 -OLD / / [id number] Stent Xprs Sd [id number] - S. Implanted:Qty : 1 on 08/17/2014 at [facility] Stent Right: Groin [employer]- [employer]IMBERLY [employer] 06/17/2016 37702-5 1989 / . 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 014 [id number] - [id number] Implanted:Qty : 1 on 08/17/2014 by Ally Molina MD at [facility] Stent Right: Groin [employer] 03/17/2016 [id number] / / [id number] Stent Viabahn Hep 3wrm49qy [id number] - [id number] Implanted:Qty : 1 on 12/15/2018 by Israel Hightower MD at [facility] Stent Left: Popliteal Artery [employer] 03/11/2021 [id number] 002A / [id number] / NA Stent Vasc Supera 6fr T-[id number]- P6-01/04/2019 Implanted: by Israel Hightower MD (Quantity not on file) Stent SADLER- VASC DEVICE [id number] 08/16/2020 S-60-10 0-120-P 6 / / [id number] Stent-01/05/20 Implanted:Qty : 1 on 01/04/2019 by Israel Hightower MD Stent [id number] 08/16/2020 / / [id number] Stent Lifestent 7 X 100-01/21/2019 Implanted:02/2019 (Quantity not on file) Stent [id number] 06/11/2020 / / [id number] Stent R2p 6fr 7.0x40mm 200cm Misago Slf Expand [id number]-31/ 7/2019 Implanted:02/2019 by Israel Hightower MD (Quantity not on file) Stent Leg TERNexBio- Vidit TAMIKA [id number] 06/16/2021 [id number] 0R / / [id number] Description:L SFA Stent Lifestream Cvr 4k70w58 [id number] - [id number] Implanted:Qty : 1 on 12/21/2020 at [facility] Stent N/A: Arterial CR BARD- KIMBERLY VASC INC 08/16/2023 [id number] 0758 / / [id number] Stent Lifestream [id number] - [id number] Implanted:Qty : 1 on 12/21/2020 at [facility] Stent Left: Leg CR BARD- KIMBERLY VASC INC 04/16/2022 [id number] 0737 / / [id number] Stent Lifestream Cvr 8h53s84 [id number] - [id number] Implanted:Qty : 1 on 12/22/2020 by Israel Hightower MD at [facility] Stent Left: Leg CR BARD- KIMBERLY VASC INC 08/16/2023 [id number] 0737 / / [id number] Stent Viabahn Vbx [id number] [id number] - [id number] Implanted:Qty : 1 on 12/22/2020 by Israel Hightower MD at [facility] Stent Left: Iliac Artery [employer] [id number] 902A / / Stent Vasc Enroute 7x30mm Sr-0730-Cs - [id number] Implanted:Qty : 1 on 12/22/2020 by Israel Hightower MD at [facility] Stent Left: Iliac Artery SILKROAD 07/16/2023 SR-0730 -CS / / [id number] Graft Vasc Propaten [id number] - [id number] Implanted:Qty : 1 on 10/14/2019 by Israel Hightower MD at [facility] Tissue Left: Leg [employer] [id number] 07/26/2023 [id number] 0A / [id number] / Insurance [place]ICAID [place] MEDICARE PART A AND B RX INFOCROSSING Medicaid RX [facility] Medicare Part D MEDICARE PART A AND B [place] Advance Directives For more information, please contact: [phone] * Full Code (Latest Code Status on File) Date Activated Date Inactivated Comments 12/21/2020 2:06 PM 12/25/2020 1:11 PM * Full Code Date Activated Date Inactivated Comments 10/14/2019 11:07 AM 10/17/2019 2:08 PM * Full Code Date Activated Date Inactivated Comments 10/14/2019 8:34 AM 10/14/2019 11:07 AM * Full Code Date Activated Date Inactivated Comments 04/02/2019 2:28 PM 04/04/2019 8:12 PM * Full Code Date Activated Date Inactivated Comments 04/01/2019 11:23 PM 04/02/2019 2:28 PM Care Teams Contact Lens Manufacturer Relationship Specialty Start Date End Date Non-Staff, Physician NO ADDRESS ON FILE PCP - General 11/19/16
[2025-04-13 19:03] VITALS: BP 150/79; PULSE 94; RESP 17; TEMP 36.8; O2SAT 96; BMI 23.2
[2025-04-13] MEDS: HYDROcodone-acetaminophen 7.5-325 mg Tablet 1 TAB PO (20:25)
--- NOTE | 2025-04-13 20:44 | ED_ITS ---
HPI - Extremity Problem General: Chief complaint: Extremity Injury, Lower Stated complaint: HIP pain Time Seen by Provider: 04/13/25 19:16 Source: patient Mode of arrival: ambulatory Limitations: no limitations History of Present Illness: Patient is a 64-year-old male who reports the emergency department clinic of right hip pain for 3 weeks. Denies any injury, states that he thinks he is having flareup of nerve pain. He has been able to walk without incident, no bowel or bladder incontinence, no saddle anesthesia, no other concerning symptoms. He does have a history of previous back surgery however. No fever, night sweats, weight loss, history of cancer, chronic steroid use, or any other concerning symptoms or related with his back pain. He does note that primarily is to the right buttock region into the right hip and radiates down the right leg below the knee. His vitals are stable. He has only been taking Tylenol at home. MD Complaint: other (Lower back pain, right hip pain, right lower extremity pain) Onset (ago): week(s) (3) Pain Consistency: constant Location: right and lower extremity Radiation: distal Associated symptoms: Deny chest pain, fever(s) or rash Related Data Home Medications ?Medication ?Instructions ?Recorded ?Confirmed aspirin 325 mg tablet,delayed 325 mg PO DAILY 01/04/20 04/06/25 release Previous Rx's ?Medication ?Instructions ?Recorded mupirocin 2 % topical ointment 1 applic topical BID ID N open 01/12/25 wound #22 grams apixaban 2.5 mg tablet (Eliquis) 2.5 mg PO BID #60 tab s 04/06/25 lisinopril 30 mg tablet 30 mg PO DAILY #30 tabs 03/18 09/10 magnesium oxide 400 mg PO BID #60 caps 04/06 rosuvastatin 10 mg tablet 10 mg PO DAILY #30 tabs 03/18 09/10 tizanidine 4 mg capsule 4 mg PO BID PRN muscle spast icity 04/13/25 #8 caps Allergies Allergy/AdvReac Type Severity Reaction Status Date / Time No Known Allergies Allergy Verified 04/06/25 08:19 Review of Systems General: Reports: 10 or more systems reviewed and unremarkable except in HPI and below Const: Reports: other (denies trauma); Denies: fever(s), change in weight or night sweats Card: Denies: chest pain, lightheadedness or syncope Resp: Denies: dyspnea GI: Denies: abdominal pain or fecal incontinence : Denies: urinary incontinence Musc: Reports: back pain, extremity pain (Right lower extremity) and joint pain (Right hip); Denies: neck pain Skin/Breast: Denies: rash or skin pain Neuro: Denies: headache(s), numbness in extremities, weakness in extremities, sensory changes, lack of coordination, difficulty walking, frequent falls or involuntary movements PFSH ED PFSH: Medical History Need for immunization against influenza Personal history of smoking Essential (primary) hypertension Mixed hyperlipidemia PAD (peripheral artery disease) Surgical History History of fusion of thoracic spine August, at [place], [place] T-11 Hx of resection of rib Left lower 2 ribs removed August, at [place], [place] History of arterial bypass of lower extremity Right 2015 Left 2019 Family History Other Diabetes FH: CVA (cerebrovascular accident) Social History Smoking and tobacco/nicotine status: current every day tobacco/nicotine user Second hand smoke exposure: Yes Alcohol intake: current Substance/Drug Use: never Adopted: No Caregiver/support person: No Lives independently: Yes Household members: spouse Housing: House Marital status: Number of children: 3 service: No Current occupational status: retired Do you think of yourself as: Straight/Heterosexual Current gender identity: Male Physical Exam Const: COMMON NORMALS: no acute distress, patient oriented x3, no limitations, healthy appearing and alert Resp: COMMON NORMALS: normal respiratory effort, No retractions, No use of accessory muscles and clear to auscultation bilaterally AUSCULTATION: clear to auscultation bilaterally Cardio: COMMON NORMALS: regular rate, regular rhythm, S1 normal heart sound present and S2 normal heart sound present RATE: regular rate RHYTHM: regular rhythm HEART SOUNDS: S1 normal heart sound present and S2 normal heart sound present Back/Pelvis: OTHER: Normal visual examination. No spinous process tenderness or paracervical, parathoracic, or paralumbar tenderness to palpation. Full active range of motion. Extremity: COMMON NORMALS: normal to inspection and full ROM Neuro: COMMON NORMALS: patient oriented x3, moves all extremities, no focal motor deficits, no sensory deficits noted, deep tendon reflexes 2+ bilaterally and gait normal SENSORIUM/ORIENTATION: Yes alert OTHER: L3, L4, L5, and S1 nerve sensations intact. Normal knee jerk and ankle jerk reflexes. Skin: COMMON NORMALS: no rashes or lesions noted GENERAL SKIN EXAM: no rashes or lesions noted Course Vital Signs: Vital signs: Vital Signs Temperature 98.3 F 04/13/25 19:03 Pulse Rate 94 04/13/25 19:03 Respiratory Rate 17 04/13/25 19:03 Blood Pressure 150/79 04/13/25 19:03 Pulse Oximetry 96 04/13/25 19:03 Oxygen Delivery Me thod Room Air 04/13/25 19:03 MDM - Extremity (Nontraumatic) Medical Decision Making Patient presenting for 3 weeks of right low back and hip pain radiating down the right leg, no trauma reported. No red flag symptoms with his history or exam. He is on a blood thinner, so avoided NSAID and due to his age treated with tizanidine, also was given a shot of Decadron and [place] and upon recheck approximately an hour or so later states that his pain and felt quite a bit better. With his exam being unremarkable overall, no concerning historical elements, I feel that this is benign and likely lumbar radiculopathy and encouraged him to treat conservatively at home. A few tizanidine will be sent home as well and return precautions given. No radiology studies performed this visit Discharge Plan Discharge Patient Disposition: Home Clinical Impression: Lumbar radiculopathy, acute Condition: Stable Prescriptions: New tizanidine 4 mg capsule 4 mg PO BID PRN (Reason: muscle spasticity) Qty: 8 0RF No Action aspirin 325 mg tablet,delayed release (DR/EC) 325 mg PO DAILY mupirocin 2 % ointment 1 applic topical BID PRN (Reason: open wound) Qty: 22 0RF Eliquis 2.5 mg tablet 2.5 mg PO BID Qty: 60 5RF lisinopril 30 mg tablet 30 mg PO DAILY Qty: 30 5RF magnesium oxide 400 mg magnesium capsule 400 mg PO BID Qty: 60 5RF rosuvastatin 10 mg tablet 10 mg PO DAILY Qty: 30 5RF Discharge Orders: Discharge ED (Routine); Ordered 04/13/25 Ordered By: Tho Donaldson Referrals: Domingo Oneill FNP-C [Primary Care Provider, Family Practice] Patient Instructions: Patient Portal & Brooke Instructions Activity Restrictions/Additional Instructions: Discharge Instructions: Lumbar Radiculopathy Diagnosis: Lumbar radiculopathy, with significant improvement following inpatient administration of [place] (hydrocodone/acetaminophen) and tizanidine. Discharge Medication Instructions: - Tizanidine 4 mg: Prescribe only a limited number of doses, to be taken at bedtime for short-term muscle spasm relief. Tizanidine is a centrally acting alpha-2 agonist muscle relaxant. In older adults, use the lowest effective dose for the shortest duration to minimize risks of sedation, hypotension, and hepatotoxicity. Advise the patient to avoid operating heavy machinery and to rise slowly from bed to prevent falls. Monitor for excessive drowsiness, weakness, or signs of liver dysfunction (e.g., jaundice, dark urine). Discontinue if adverse effects occur. - [place] (hydrocodone/acetaminophen): No further outpatient opioid prescription is recommended due to age-related risks (falls, cognitive impairment, dependence, overdose) and lack of evidence for long-term benefit in radiculopathy. Opioids should be reserved for severe, refractory pain and only for short-term use. Non-Pharmacologic and Conservative Management: - Patient Education: Reassure regarding the favorable natural history of lumbar radiculopathy; most patients experience substantial improvement within weeks to months. Avoid alarming terminology; use protruded disk rather than ruptured disk . - Activity: Encourage gradual resumption of normal activities as tolerated. Prolonged bed rest is not superior to movement; early mobilization is preferred. - Physical Therapy: Recommend referral for individualized physical therapy focusing on: - Directional preference exercises (e.g., Humphrey method) - Motor control and core stabilization - Strengthening and stretching - Postural and ergonomic advice - These modalities have moderate evidence for improving pain and function in lumbar radiculopathy. - NSAIDs: May be considered for short-term pain relief if not contraindicated (e.g., renal insufficiency, GI risk). NSAIDs and muscle relaxants are supported for acute low back pain, but their benefit in radiculopathy is less clear; use with caution in older adults. - Other Medications: There is insufficient evidence to support routine use of antiepileptics, antidepressants, or other muscle relaxants for lumbar radiculopathy. Follow-Up and Red Flags: - Schedule outpatient follow-up within 1?2 weeks to reassess symptoms and functional status. - Advise immediate medical attention for new or worsening neurological deficits (e.g., progressive weakness, saddle anesthesia, bowel/bladder dysfunction), which may indicate cauda equina syndrome or severe nerve compression. - If pain persists beyond 4?6 weeks despite conservative management, consider MRI for further evaluation and possible referral for epidural steroid injection or surgical consultation. Summary of Recommendations: - Limit tizanidine to short-term, bedtime use; monitor for adverse effects. - Avoid further opioid prescription. - Emphasize education, early mobilization, and physical therapy. - Use NSAIDs judiciously if appropriate. - Monitor for red flag symptoms and arrange timely follow-up. These instructions reflect current consensus and guideline-based management for lumbar radiculopathy in older adults, prioritizing safety, functional recovery, and avoidance of unnecessary interventions. Print Language: Libyan Coding Level of Care Code ED Corrections Cadet for Yuval Jensen
== END 2025-04-13 22:57 | disposition home or self-care (01) ==
PROVIDERS: Emergency Provider Physician Assistant; PCP Nurse Practitioner
DX: M54.16 Radiculopathy, lumbar region (principal); Z79.82 Long term (current) use of aspirin; Z79.01 Long term (current) use of anticoagulants; Z72.0 Tobacco use; I10 Essential (primary) hypertension; E78.2 Mixed hyperlipidemia
CPT/HCPCS: 96372; 99284; J1100; J9999